=== PATIENT | male | born 1945 | race Caucasian/White ===

== ENCOUNTER 2020-04-02 06:55 | Day surgery (SDC) | payer MEDICARE, OTHER ==
[2020-03-27 14:16] LABS: BASOPHILS % (AUTO) 0.5 % (0-1); EOSINOPHILS # (AUTO) 0.2 X10'3 (0-0.9); EOSINOPHILS % (AUTO) 3.9 % (0-6); LYMPHOCYTES # (AUTO) 1.4 X10'3 (1.1-4.8); LYMPHOCYTES % (AUTO) 22.7 % (21-51); MEAN CORPUSCULAR HGB CONC 33.2 g/dL (33.0-36.5); MEAN CORPUSCULAR VOLUME 93.5 FL (78-98); MEAN PLATELET VOLUME 7.9 FL (7.4-10.4); MONOCYTES # (AUTO) 0.7 X10'3 (0-0.9); MONOCYTES % (AUTO) 11.3 % (2-12); NEUTROPHILS # (AUTO) 3.9 X10'3 (1.8-7.7); NEUTROPHILS % (AUTO) 61.6 % (42-75); PRE OP HEMOGLOBIN 16.6 g/dL (14.0-17.9); PRE OP PLATELET COUNT 194 X10'3 (140-440); RED BLOOD COUNT 5.35 X10'6 (4.70-6.10); RED CELL DISTRIBUTION WIDTH 12.8 % (11.5-14.5)
[2020-03-27 14:26] LABS: ALBUMIN 3.9 G/DL (3.4-5.0); ALBUMIN/GLOBULIN RATIO 1.1 (1.1-1.5); ALKALINE PHOSPHATASE 53 IU/L (46-116); BLOOD UREA NITROGEN 24 MG/DL (7-18); BUN/CREATININE RATIO 23.5 (5.4-32.0); CHLORIDE 107 MMOL/L (99-107); CREATININE 1.02 MG/DL (0.60-1.10); PRE OP ALT 44 U/L (30-65); PRE OP ANION GAP 6 (8-16); PRE OP AST 30 U/L (10-37); PRE OP BILIRUB, TOTAL 0.6 MG/DL (0.0-1.0); PRE OP GLUCOSE 100 MG/DL (70-104); PRE OP POTASSIUM 3.7 MMOL/L (3.4-5.1); PRE OP SODIUM 142 MMOL/L (135-145); TOTAL CARBON DIOXIDE 29.2 MMOL/L (24-32); TOTAL PROTEIN 7.5 G/DL (6.4-8.2); eGFR 71 ML/MIN
[2020-04-02] VITALS (10 sets, daily range): BP systolic 114–144; BP diastolic 71–88
[~2020-04-02] VITALS: Ht 175.3 cm; Wt 80.5 kg
[~2020-04-02 06:55] MED LIST: ATOR20TA66 PO; BUPIVAcaine/PF 2.5 mg/ml (0.25%) 30ml vial ONE; FLO0.4C PO; HYDR12.55 PO; LEVO50TA8 PO; LIDOcaine 1% 30ml preserv. free vial ONE; cefazolin/dext.iso 2gm/50ml 50 ML IV ONE; famotidine 20mg tablet PO ONE; ringers solution, lacted 1,000 ML IV SCH
[2020-04-02] MEDS ORDERED: ringers solution, lacted 1,000 ML IV SCH (07:54)
[2020-04-02] MEDS ORDERED: morphine 2 MG/ML inj. syringe IV PRN (07:55)
[2020-04-02] MEDS ORDERED: proCHLORperazine 10 MG/2 ml inj IV PRN (07:55)
[2020-04-02] MEDS ORDERED: ondansetron/PF 4mg/2ml inj IV PRN (07:55)
[2020-04-02] MEDS ORDERED: morphine 4 MG/ML inj SYRINge IV PRN (07:55)
[2020-04-02] MEDS ORDERED: meperidine/PF 25mg/ml syringe IV PRN ×3 (07:55)
[2020-04-02] MEDS ORDERED: sevoflurane 250ml liquid IH ONE (09:07)
[2020-04-02] MEDS ORDERED: neostigmine methylsulfate 1 MG/ML 10ml vial ONE (09:07)
[2020-04-02] MEDS ORDERED: dexamethasone sod phosphate 10mg/ml inj ONE (09:07)
[2020-04-02] MEDS ORDERED: fentaNYL/PF 50MCG/1 ML 2ML syringe ONE (09:12)
[2020-04-02] MEDS ORDERED: midazolam 2 mg/2 ml injection ONE (09:12)
[2020-04-02] MEDS ORDERED: propofol inj 20 ML IV ONE (09:12)
[2020-04-02] MEDS ORDERED: LIDOcaine 2% (20mg/ml) 5ml vial ONE (09:13)
[2020-04-02] MEDS ORDERED: rocuronium 10mg/ml inj IV ONE (09:15)
[2020-04-02] MEDS ORDERED: ondansetron/PF 4mg/2ml inj ONE (09:23)
[2020-04-02] MEDS ORDERED: acetaminophen 1,000mg/100ml IV 100 ML IV ONE (09:32)
[2020-04-02] MEDS ORDERED: glycopyrrolate 0.2mg/ml inj ONE (10:23)
[2020-04-02] MEDS ORDERED: HYDROcodone/acetaminophen 5mg/325mg tablet PO PRN (10:30)
--- NOTE | 2020-04-02 10:30 | NUR ---
Received from OR via BED , accompanied by Anesthesiologist DR [email or web address] and report given by Anesthesiolgist. PATIENT WAKING UP, DENIES PAIN, V/S WNL, NEUROVASCULAR CHECKS INTACT, 20G PIV LUE, SCD ON, BANDAIDS TO LAP SIGHTS OF ABDOMEN CDI.
--- NOTE | 2020-04-02 11:40 | NUR ---
PATIENT A&OX4, DENIES PAIN, V/S WNL, NEUROVASCULAR CHECKS INTACT, 20G PIV LUE D/C, SCD OFF, BANDAIDS TO LAP SIGHTS OF ABDOMEN CDI.. PATIENT HAS VOIDED 200CC URINE. I HAVE REVIEWED D/C INSTRUCTIONS WITH PATIENT AND FAMILY HAVE VERBALIZED UNDERSTANDING.PATIENT WAS D/C HOME WITH ALL BELONGINGS AND FAMILY GAVE TRANSPORT HOME
== END 2020-04-02 11:40 | disposition home or self-care (01) ==
LOC: PAS 06:55
PROVIDERS: ATTEND Surgery
DX: K40.91 Unilateral inguinal hernia, without obstruction or gangrene, recurrent (principal); N40.0 Benign prostatic hyperplasia without lower urinary tract symptoms; I10 Essential (primary) hypertension; E03.9 Hypothyroidism, unspecified; E78.5 Hyperlipidemia, unspecified; Z79.899 Other long term (current) drug therapy; Z87.891 Personal history of nicotine dependence; Z98.890 Other specified postprocedural states; Z72.89 Other problems related to lifestyle; Z83.3 Family history of diabetes mellitus; Z11.59 Encounter for screening for other viral diseases
CPT/HCPCS: 36415; 49651; 80053; 82948; 85025; 87635; 93005; C1781; J0131; J1100; J2001; J2250; J2405; J2704; J2710; J3010; J3490; J7120; A4215; A4618